=== PATIENT | male | born 1985 | race Caucasian/White ===

== ENCOUNTER 2017-04-30 21:35 | Emergency (ER) | payer OTHER ==
[~2017-04-30] VITALS: Ht 172.7 cm; Wt 81.6 kg
[2017-04-30 21:54] VITALS: Ht 172.7 cm; Wt 81.6 kg
[2017-04-30 22:44] VITALS: BP 160/70
== END 2017-04-30 22:44 | disposition other institution (70) ==
LOC: ED 21:35
DX: Z00.00 Encounter for general adult medical examination without abnormal findings (principal); F15.10 Other stimulant abuse, uncomplicated; R00.0 Tachycardia, unspecified; Z90.89 Acquired absence of other organs